=== PATIENT | female | born 1975 | race Caucasian/White ===

== ENCOUNTER 2021-11-29 14:11 | Emergency (ER) | payer MEDICARE ==
[~2021-11-29] VITALS: Ht 162 cm; Wt 56.0 kg
[2021-11-29 14:15] VITALS: BP 162/88
--- NOTE | 2021-11-29 14:30 | ED Lower Extremity ---
General Stated Complaint: L FOOT PAIN History of Present Illness Date Seen by Provider: Nov 29, 2021 Time Seen by Provider: 14:20 Initial Comments This is a 46 YO female with history of ESRD and HTN who presents to the ED with left foot pain since stubbing her left fifth toe at 10:30 this morning. She says that she initially did not think anything of it, but as she went about her day, the pain worsened and she developed bruising and swelling of the pinky toe and foot. Has not taken anything at home for the pain but is requesting Tylenol. Denies any other injuries. Onset: this morning Pain/Injury Location: left foot Modifying Factors: Improves With Movement (XIMENA DOZIER STUDENT) Allergies and Home Medications Allergies Coded Allergies: Opioids - Morphine Analogues (Verified Adverse Reaction, Intermediate, AMS, 11/29/21) Hallucinations, confusion, agitation Patient Home Medication List Home Medication List Reviewed: Yes (LOREN GLYNN MD) Review of Systems Constitutional: No chills, No fever EENTM: No blurred vision, No double vision Respiratory: No cough, No short of breath Cardiovascular: No chest pain, No palpitations Gastrointestinal: No nausea, No vomiting Genitourinary: no symptoms reported Musculoskeletal: see HPI; No back pain, No neck pain Skin: No pruritus, No rash Psychiatric/Neurological: Denies Headache, Denies Numbness (XIMENA DOZIER) All Other Systems Reviewed Negative Unless Noted: Yes (Negative excepted noted.) (XIMENA DOZIER) Physical Exam Vital Signs Vital Signs - First Documented 11/29/21 14:15 Pulse 59 Resp 16 B/P (MAP) 162/88 (112) Pulse Ox 100 O2 Delivery Room Air (LOREN GLYNN MD) Vital Signs Capillary Refill : (XIMENA DOZIER STUDENT) Height, Weight, BMI Height: '" Weight: lbs. oz. kg; BMI Method: General Appearance: WD/WN, no apparent distress, other (ambulates unassisted with a limp) HEENT: PERRL/EOMI; No scleral icterus (R), No scleral icterus (L) Neck: non-tender, full range of motion Cardiovascular: regular rate, rhythm Respiratory: lungs clear, normal breath sounds, no respiratory distress, no accessory muscle use Gastrointestinal: No distended Neurologic/Tendon: normal sensation, normal motor functions, normal tendon functions, other (left 5th toe tenderness, ecchymosis, and swelling extending to the distal forefoot; point tenderness at the MTP joint; NVI distally) Neurologic/Psychiatric: no motor/sensory deficits, alert, normal mood/affect, oriented x 3 Skin: normal color, warm/dry (XIMENA DOZIER MED STUDENT) Progress/Results/Core Measures Results/Orders My Orders Orders - LOREN GLYNN MD Foot, Left, 3 Views (11/29/21 14:36) Acetaminophen Tablet (Tylenol Tablet) (11/29/21 15:45) (LOREN GLYNN MD) Medications Given in ED (LOREN GLYNN MD) Vital Signs/I&O 11/29/21 14:15 Pulse 59 Resp 16 B/P (MAP) 162/88 (112) Pulse Ox 100 O2 Delivery Room Air (LOREN GLYNN MD) Progress Progress Note : Progress Note X-rays were obtained of the foot. There is a probable fracture at the proximal end of the proximal phalanx of the fifth toe. She was provided a postop shoe. Discharge instructions were reviewed. Tylenol was given for pain. (LOREN GLYNN MD) Diagnostic Imaging Diagonstic Imaging: Xray Plain Films/CT/US/NM/MRI: other (left foot) Comments Date of Exam:11/29/21 FOOT, LEFT, 3 VIEWS INDICATION: Foot pain. Stubbed toe. EXAMINATION: Left foot from 11/29/2021. FINDINGS: Three views of the foot. There is a vague lucency through the base of the proximal fifth phalanx on one view only, possibly a nondisplaced fracture, correlate for point tenderness. Remaining osseous structures are intact. No dislocations. There are degenerative changes at the first metatarsophalangeal joint. IMPRESSION: 1. Questionable nondisplaced fracture along the proximal aspect of the proximal fifth phalanx. Correlate with site of pain. Dictated on workstation # [id number] Reviewed: Reviewed by Me (XIMENA DOZIER MED STUDENT) Departure Impression Primary Impression: Fracture of toe of left foot Qualified Codes: S92.515A - Nondisplaced fracture of proximal phalanx of left lesser toe(s), initial encounter for closed fracture Disposition: HOME, SELF-CARE Condition: Stable Departure-Patient Inst. Decision time for Depature: 16:00 (LOREN GLYNN MD) Referrals: NO,LOCAL PHYSICIAN (PCP/Family) Primary Care Physician Patient Instructions: Toe Fracture Add. Discharge Instructions: You may use a postop shoe or another shoe with a firm sole to help protect your toe as it heals. You may use Tylenol (acetaminophen) up to 1000 mg every 6 hours as needed for pain. Elevation and icing in 20-minute intervals should also be helpful in reducing pain and swelling. You will likely have some significant pain over the next 2 weeks. The fracture should heal in 4 to 6 weeks. Gradually increase level of activity as pain allows. Call with questions or concerns. Return to the ER or your primary care provider if you have worsening symptoms despite following these instructions. Medical Student Attestation and Attending Note: I have personally interviewed and examined this patient along with Ximena Dozier, MS 4. I have reviewed student documentation including history, physical, and assessments. I agree with the documentation except where otherwise noted. Exam: General: Alert, oriented, no acute distress, well developed HEENT: Normocephalic and atraumatic Heart: Regular rate and rhythm without murmur Lungs: Clear to auscultation bilaterally with normal effort Extremities: Ecchymosis, swelling, and tenderness of the proximal left fifth toe and over the distal fifth metatarsal. Neuropsych: Alert, oriented, no focal deficits Skin: Warm and dry without rashes, ecchymosis as above (LOREN GLYNN MD) XIMENA DOZIER MED STUDENT Nov 29, 2021 14:30 LOREN GLYNN MD Nov 29, 2021 16:00
--- NOTE | 2021-11-29 14:58 | Diagnostic Imaging Report ---
INDICATION: Foot pain. Stubbed toe. EXAMINATION: Left foot from 11/29/2021. FINDINGS: Three views of the foot. There is a vague lucency through the base of the proximal fifth phalanx on one view only, possibly a nondisplaced fracture, correlate for point tenderness. Remaining osseous structures are intact. No dislocations. There are degenerative changes at the first metatarsophalangeal joint. IMPRESSION: 1. Questionable nondisplaced fracture along the proximal aspect of the proximal fifth phalanx. Correlate with site of pain. Dictated by: Dictated on workstation # [id number]
[2021-11-29] MEDS ORDERED: ACETAMINOPHEN 500 MG TAB (TYLENOL) PO ONE (15:45)
== END 2021-11-29 16:30 | disposition home or self-care (01) ==
LOC: ER 14:13
DX: S92.515A Nondisplaced fracture of proximal phalanx of left lesser toe(s), initial encounter for closed fracture (principal); W22.8XXA Striking against or struck by other objects, initial encounter
CPT/HCPCS: 73630